=== PATIENT | female | born 1945 | race Caucasian/White ===

== ENCOUNTER 2016-09-05 17:16 | Emergency (ER) | payer MEDICARE ==
[~2016-09-05] VITALS: Ht 162.6 cm; Wt 61.2 kg
[~2016-09-05 17:16] MED LIST: HYDR-971 PO; HYDR12.58 PO
[2016-09-05 17:25] VITALS: BP 152/67
--- NOTE | 2016-09-05 17:41 | ED.ADGEN ---
Past Medical History Past Medical History: Kidney Stone, Other Additional Past Medical Histor: PSORIASIS Past Surgical History: Other Additional Past Surgical Histo: PARTIAL GASTRECTOMY, KIDNEY STONE REMOVAL Alcohol Use: None Drug Use: None Adult General Chief Complaint Chief Complaint: WRIST PAIN HPI HPI Patient is a 71 year old female presents emergency department complaining of left wrist pain and deformity. Less than 30 minutes prior to arrival she did fall on an outstretched wrist. Other than I she has had no prehospital intervention and is declining any pain medicine at this time. She denies any other injury. She is right-hand dominant. Review of Systems Review of Systems Constitutional: Denies fever or chills. [] Eyes: Denies change in visual acuity. [] HENT: Denies nasal congestion or sore throat. [] Respiratory: Denies cough or shortness of breath. [] Cardiovascular: Denies chest pain or edema. [] GI: Denies abdominal pain, nausea, vomiting, bloody stools or diarrhea. [] : Denies dysuria. [] Musculoskeletal: Denies back pain or joint pain. [] Integument: Denies rash. [] Neurologic: Denies headache, focal weakness or sensory changes. [] Endocrine: Denies polyuria or polydipsia. [] Lymphatic: Denies swollen glands. [] Psychiatric: Denies depression or anxiety. [] Current Medications Current Medications Current Medications Medications (Trade) Dose Ordered Sig/Irving Start Time Stop Time Status Last Admin Dose Admin Fentanyl Citrate (Fentanyl 2ml Vial) 75 mcg 1X ONCE 09/05/16 18:00 09/05/16 18:01 UNV Allergies Allergies Allergies Coded Allergies Type Severity Reaction Last Updated Verified azithromycin Allergy Intermediate 10/10/13 Yes erythromycin base Allergy Intermediate 07/12/14 Yes morphine Allergy Unknown Hallucinations 09/05/16 Yes Physical Exam Physical Exam Constitutional: Well developed, well nourished, no acute distress, non-toxic appearance. [] HENT: Normocephalic, atraumatic, bilateral external ears normal, oropharynx moist, no oral exudates, nose normal. [] Eyes: PERRLA, EOMI, conjunctiva normal, no discharge. [] Neck: Normal range of motion, no tenderness, supple, no stridor. [] Cardiovascular:Heart rate regular rhythm, no murmur [] Lungs & Thorax: Bilateral breath sounds clear to auscultation [] Abdomen: Bowel sounds normal, soft, no tenderness, no masses, no pulsatile masses. [] Skin: Warm, dry, no erythema, no rash. [] Extremities: Left wrist is diffusely tender to palpation with associated edema [ ] Neurologic: Alert and oriented X 3, normal motor function, normal sensory function, no focal deficits noted. [] Psychologic: Affect normal, judgement normal, mood normal. [] Current Patient Data Vital Signs Vital Signs Date Time Temp Pulse Resp B/P Pulse Ox O2 Delivery O2 Flow Rate FiO2 09/05/16 17:25 97.9 88 20 152/67 97 Room Air 97.9 EKG EKG [] Radiology/Procedures Radiology/Procedures Left wrist x-ray interpreted by me, acute partially displaced Colles' fracture [ ] Course & Med Decision Making Course & Med Decision Making Pertinent Labs and Imaging studies reviewed. (See chart for details) 1745 - spoke with Dr. Koroma with orthopedics he requests that we splinter today and have her follow up tomorrow in clinic. Have updated the patient's plan she is in agreement. Splint has been inspected by me she is neurovascularly intact distally. [] Dragon Disclaimer Dragon Disclaimer This electronic medical record was generated, in whole or in part, using a voice recognition dictation system. JADE MITCHELL MD Sep 05, 2016 17:41
[2016-09-05] MEDS ORDERED: FENTANYL PF 100 MCG/2 ML VIAL. IV ONE (18:00)
[2016-09-05] MEDS ORDERED: HYDR-971 PO (18:01)
[2016-09-05] MEDS ORDERED: HYDROCODONE/APAP 5/325MG TABLET. PO ONE (18:15)
--- NOTE | 2016-09-06 08:34 | RAD ---
Left wrist, 3 views, 09/05/2016: History: Fall, pain There is patchy bony demineralization. There is a fracture of the distal radius. It is mildly comminuted. It is mildly impacted posteriorly with dorsal angulation of the major distal fracture fragment. A fracture line appears to involve its articular surface. There is a small avulsion fracture of the ulnar styloid. The carpal bones are intact. There are moderate degenerative changes at the first CMC joint. IMPRESSION: 1. Mildly impacted and angulated distal radial fracture with intra-articular extension. 2. Ulnar styloid fracture
[2016-09-06] MEDS ORDERED: ERGO500012 PO (17:08)
[2016-09-07] MEDS ORDERED: HYDR-965 PO (17:15)
== END 2016-09-05 19:06 | disposition home or self-care (01) ==
LOC: ER 17:16
DX: M25.532 Pain in left wrist (principal); L40.9 Psoriasis, unspecified; Z88.5 Allergy status to narcotic agent; Z88.1 Allergy status to other antibiotic agents; W18.39XA Other fall on same level, initial encounter; Y93.89 Activity, other specified; Y92.89 Other specified places as the place of occurrence of the external cause; Y99.8 Other external cause status
CPT/HCPCS: 29125; 73110; 99284-25

== ENCOUNTER 2016-09-07 15:21 | Day surgery (SDC) | payer MEDICARE ==
[~2016-09-07 15:21] MED LIST changes: +ERGO500012 PO; +FENTANYL PF 100 MCG/2 ML VIAL. IV PRN; +IV RINGERS,LACTATED 1000ML 1,000 ML IV SCH; +LIDOCAINE 1% 1 ML SYRINGE. ID PRN; +ONDANSETRON PF 4 MG/2 ML VIAL. IV PRN; +PROCHLORPERAZINE 10 MG/2 ML VIAL. IV PRN
[2016-09-07] MEDS ORDERED: LIDOCAINE 2% 100 MG/5 ML SYRINGE. ONE (16:20)
[2016-09-07] MEDS ORDERED: ONDANSETRON PF 4 MG/2 ML VIAL. ONE (16:20)
[2016-09-07] MEDS ORDERED: PROPOFOL 20 ML IV ONE ×2 (16:20→16:23)
--- NOTE | 2016-09-07 17:14 | DISCH ---
DISCHARGE INSTRUCTIONS Condition on Discharge Condition on Discharge: Stable Activity After Discharge Activity Instructions for Disc: Other, see below Other activity instructions: fine motor use left hand only, sling for comfort Bathing Instructions: Shower-keep dressing dry Diet after Discharge Diet after Discharge: Regular Wound Incision Care Wound/Incision Care: Ice to area for comfort, Keep wound elevated, Do not change dressing Contacting the DRBobo after DC Call your doctor for: Concerns you may have Follow-Up Follow up with: Franci 1 week KATELIN UPTON MD Sep 07, 2016 17:14
[2016-09-07] MEDS ORDERED: HYDR-965 PO (17:15)
[2016-09-07] MEDS ORDERED: KETOROLAC 60 MG/2 ML SYRINGE FOR OR. ONE (17:24)
[2016-09-07] MEDS ORDERED: SEVOFLURANE 16 TO 30 MINUTES. IH ONE (17:40)
[2016-09-07] MEDS ORDERED: SEVOFLURANE 31 TO 60 MINUTES. IH ONE (17:40)
[2016-09-07] MEDS ORDERED: HYDROCODONE/APAP 7.5/325MG TABLET. PO PRN (18:45)
[2016-09-07 19:30] VITALS: BP 149/68
--- NOTE | 2016-09-08 08:50 | OP ---
DATE OF SURGERY: 09/07/2016 PREOPERATIVE DIAGNOSIS: Displaced left distal radius fracture. POSTOPERATIVE DIAGNOSIS: Displaced left distal radius fracture. PROCEDURE: Closed reduction, left distal radius fracture. SURGEON: Jonny Koroma M.D. ANESTHESIA: General. COMPLICATIONS: None. OPERATIVE INDICATIONS: The patient is a 71-year-old female fell on an outstretched arm out in her yard, was seen by our nurse positioner in the clinic a day before. I had reviewed with her ____ surgery, the risks, benefits, postoperative course of the procedure, the alignment of the wrist fracture versus the desired alignment and the proposed closed reduction procedure along with the possibility of a ____ and potential internal fixation if necessary. The postoperative protection and splinting required possibility of delayed or nonhealing, medical or other anesthetic complications among others. All her questions were answered and consent was obtained that she agrees to proceed with operative evaluation and treatment. OPERATIVE TECHNIQUE: After adequate amounts of anesthesia were administered, timeout was performed, the patient procedure identified and verified and internal closed reduction was carried out, the rest under fluoroscopic guidance. A well-padded reverse sugar tong plaster splint was then applied and molded appropriately and noted to be satisfactory post-reduction alignment of the distal radius fracture. She was returned to recovery room in stable condition having tolerated the procedure well. JONNY KOROMA MD DR: JASBIR/willis JOB#: [id number] / [id number] LISET Cuellar MD
== END 2016-09-07 19:38 | disposition home or self-care (01) ==
LOC: SURG 15:21
PROVIDERS: ATTEND Orthopaedic Surgery
DX: S52.592A Other fractures of lower end of left radius, initial encounter for closed fracture (principal); M19.90 Unspecified osteoarthritis, unspecified site; X58.XXXA Exposure to other specified factors, initial encounter; Y93.9 Activity, unspecified; Y92.9 Unspecified place or not applicable; Y99.9 Unspecified external cause status; I10 Essential (primary) hypertension; Z90.710 Acquired absence of both cervix and uterus; Z87.442 Personal history of urinary calculi; Z98.51 Tubal ligation status; Z86.14 Personal history of Methicillin resistant Staphylococcus aureus infection
CPT/HCPCS: 25605; 76000; J1885; J2405; J2704; J3010; J0780